=== PATIENT | male | born 1960 | race Two or more races ===

== ENCOUNTER → 2023-01-04 | Emergency (ER) | payer OTHER ==
[~2023-01-04] VITALS: Ht 167.6 cm; Wt 117.9 kg
[~2023-01-04] MED LIST: CANDESARTAN CIL16 MG PO; CARVEDILOL ER40 MG PO; NORVASC5 MG PO; SINGULAIR10 MG PO
[2023-01-04 13:26] LABS: HEMOGLOBIN 15.4 g/dL (13-16.00); MEAN CELL VOLUME 95.6 fL (80.0-100.00); MEAN CORPUSCULAR HEMOGLOBIN 33.5 pg (27.00-32.0); MEAN CORPUSCULAR HGB CONC 35.1 g/dl (32.0-36.0); PLATELET COUNT 205 K/uL (150-450); RED BLOOD COUNT 4.61 M/uL (4.00-6.00); RED CELL DISTRIBUTION WIDTH 12.8 % (11.5-14.5)
[2023-01-04 13:58] LABS: CALCIUM 10.2 mg/dL (8.5-10.1); CREATININE SERUM 0.8 mg/dL (0.70-1.30); GFR 97.63; POTASSIUM 3.9 mEq/L (3.5-5.1)
== END | disposition home or self-care (01) ==
LOC: ER 10:27
PROVIDERS: General Practice
DX: K62.5 Hemorrhage of anus and rectum (principal); I10 Essential (primary) hypertension; K58.8 Other irritable bowel syndrome; K57.90 Diverticulosis of intestine, part unspecified, without perforation or abscess without bleeding

== ENCOUNTER 2024-04-05 11:58 | Outpatient (CLI) | payer OTHER | END 2024-04-05 12:14 | disposition home or self-care (01) | LOC: MRI 11:58 | PROVIDERS: ATTEND Internal Medicine Gastroenterology | DX: R10.9 Unspecified abdominal pain (principal) | CPT/HCPCS: 74182 ==

== ENCOUNTER 2024-04-10 13:39 | Inpatient (IN) | payer OTHER ==
[~2024-04-10] VITALS: Ht 165.1 cm; Wt 112.9 kg
[2024-04-10] MEDS ORDERED: TOPROL XL100 M1 PO (13:46)
[2024-04-10] MEDS ORDERED: TOPROL XL50 M1 PO (13:46)
--- NOTE | 2024-04-10 13:55 | NUR ---
PACIENTE ALERTA Y ORIENTADO X3 REFIERE TENER ORDEN MEDICA POR DR. SHAN FRANKLIN, PARA SER ADMITIDO POR COLELITIASIS. PTE REFIERE DOLOR ABDOMINAL. NIEGA ALGUN TIPO DE [place]GR[place]. SE MIDE S/V Y SE UBICA.
[2024-04-10] MEDS ORDERED: PIPERACILLIN/TAZOBACTAM SODIUM 3.375 GM VIAL IV ONE ×2 (14:28→14:30)
[2024-04-10 15:19] LABS: HEMATOCRIT 38.3 % (39.0-48.0); MEAN CELL VOLUME 96.9 fL (80.0-100.00); MEAN CORPUSCULAR HGB CONC 34.1 g/dl (32.0-36.0); PLATELET COUNT 357 K/uL (150-450); RED BLOOD COUNT 3.96 M/uL (4.00-6.00); RED CELL DISTRIBUTION WIDTH 12.6 % (11.5-14.5)
[2024-04-10 15:24] LABS: ERYTHROCYTE SEDIMENTATION RATE 76 mm/hr
[2024-04-10 15:36] LABS: D DIMER 1.99 MG/L; INR 1.28; PARTIAL THROMBOPLASTIN TIME 37.9 SECONDS (22.0-34.0); PROTHROMBIN TIME 13.7 SECONDS (9.0-11.5)
[2024-04-10 15:41] LABS: ALBUMIN 2.6 gm/dL (3.4-5.0); BILIRUBIN TOTAL 1.18 mg/dL (0.3-1.2); CALCIUM 10.2 mg/dL (8.5-10.1); CREATININE SERUM 1.02 mg/dL (0.70-1.30); GFR 73.53; POTASSIUM 4.08 mEq/L (3.5-5.1); TOTAL PROTEIN 7.6 gm/dL (6.4-8.2)
[2024-04-10 15:50] LABS: PH,URINE 5.5 (5.0-8.0); URINE APPEARANCE Clear; URINE BILIRRUBIN Negative (NEGATIVE); URINE BLOOD Negative; URINE COLOR Dark Yellow; URINE GLUCOSE Negative (NEGATIVE); URINE KETONE Trace (NEGATIVE); URINE LEUKOCYTE Trace; URINE NITRATE Negative; URINE PROTEIN Trace (NEGATIVE)
[2024-04-10 15:54] LABS: URINE BACTERIA 28.1 uL (0.0-1933); URINE EPITHELIAL CELLS 3.3 uL (0.0-38.8); URINE RBC 12.5 uL (0.0-20.8); URINE WBC 3.7 uL (0.0-23.2)
[2024-04-10 15:59] LABS: C-REACTIVE PROTEIN 15.2 MG/DL (0.00-0.29)
[2024-04-10 16:00] LABS: URINE CAST 0.14 uL (0.0-1.40)
[2024-04-10] MEDS ORDERED: APIXABAN 5 MG TABLET PO SCH (17:44)
[2024-04-10] MEDS ORDERED: METOPROLOL TARTRATE 50 MG TABLET PO SCH (17:45)
[2024-04-10] MEDS ORDERED: METOPROLOL TARTRATE 100 MG TABLET PO SCH (17:45)
[2024-04-10] MEDS ORDERED: SODIUM CHLORIDE 0.45 % 1,000 ML IV SCH (18:00)
[2024-04-10 21:00] VITALS: BP 130/75; O2SAT 100
[2024-04-10 23:23] VITALS: BP 95/60; O2SAT 95
[2024-04-11 02:30] VITALS: BP 121/58
[2024-04-11 06:28] LABS: ALBUMIN 2.3 gm/dL (3.4-5.0); BILIRUBIN TOTAL 1.11 mg/dL (0.3-1.2); BILIRUBIN,CONJUGATED 0.53 mg/dL (0.0-0.2); BILIRUBIN,UNCONJUGATED 0.58 mg/dL (0.0-0.6); MAGNESIUM 1.9 mg/dL (1.8-2.4); PHOSPHOROUS 3.3 mg/dL (2.5-4.9); PROSTATIC SPECIFIC ANTIGEN 1.76 NG/ML (0.010-4.00); TOTAL PROTEIN 5.9 gm/dL (6.4-8.2)
[2024-04-11] MEDS ORDERED: CANDESARTAN CILEXETIL 32 MG TABLET PO SCH (09:00)
[2024-04-11] MEDS ORDERED: AMLODIPINE BESYLATE 5 MG TABLET PO SCH (09:00)
[2024-04-11] MEDS ORDERED: HYDROCHLOROTHIAZIDE 12.5 MG CAPSULE PO SCH (09:00)
[2024-04-11] MEDS ORDERED: METOPROLOL TARTRATE 100 MG TABLET PO SCH (09:00)
[2024-04-11 09:10] VITALS: BP 113/69; O2SAT 99
[2024-04-11] MEDS ORDERED: PIPERACILLIN/TAZOBACTAM SODIUM 3.375 GM in DEXTROSE 5 % IN WATER 100 ML IV SCH (10:00)
[2024-04-11 10:13] LABS: T4 FREE 1.6 NG/ML (0.76-1.46)
[2024-04-11] MEDS ORDERED: VITAMIN B COMPLEX/LYSINE 15 ML BLIST.PACK PO SCH (17:00)
[2024-04-11] MEDS ORDERED: METOPROLOL TARTRATE 50 MG TABLET PO SCH (17:00)
[2024-04-11 18:25] VITALS: BP 120/73; O2SAT 97
[2024-04-12 01:13] VITALS: BP 140/77
[2024-04-12 06:46] LABS: ALBUMIN 2.4 gm/dL (3.4-5.0); BILIRUBIN TOTAL 0.81 mg/dL (0.3-1.2); CALCIUM 9.5 mg/dL (8.5-10.1); CREATININE SERUM 0.86 mg/dL (0.70-1.30); GFR 89.53; GLOBULINA 3.7 G/DL (2.4-3.5); MAGNESIUM 2.2 mg/dL (1.8-2.4); PHOSPHOROUS 3.6 mg/dL (2.5-4.9); POTASSIUM 5.18 mEq/L (3.5-5.1); TOTAL PROTEIN 6.1 gm/dL (6.4-8.2)
[2024-04-12 06:47] LABS: HEMATOCRIT 34.2 % (39.0-48.0); HEMOGLOBIN 11.8 g/dL (13-16.00); MEAN CELL VOLUME 97.1 fL (80.0-100.00); MEAN CORPUSCULAR HEMOGLOBIN 33.6 pg (27.00-32.0); MEAN CORPUSCULAR HGB CONC 34.6 g/dl (32.0-36.0); PLATELET COUNT 310 K/uL (150-450); RED BLOOD COUNT 3.52 M/uL (4.00-6.00); RED CELL DISTRIBUTION WIDTH 12.8 % (11.5-14.5)
[2024-04-12 06:54] LABS: C-REACTIVE PROTEIN 11.5 MG/DL (0.00-0.29)
[2024-04-12 08:05] VITALS: BP 137/68
[2024-04-12 18:17] VITALS: BP 120/70; O2SAT 100
[2024-04-13 01:51] VITALS: BP 105/56
[2024-04-13 08:07] VITALS: BP 125/81
[2024-04-13 17:09] VITALS: BP 103/61; O2SAT 97
[2024-04-14 01:28] VITALS: BP 122/72
[2024-04-14 07:47] LABS: ALBUMIN 2.5 gm/dL (3.4-5.0); BILIRUBIN TOTAL 0.53 mg/dL (0.3-1.2); CALCIUM 9.3 mg/dL (8.5-10.1); CREATININE SERUM 0.78 mg/dL (0.70-1.30); GFR 100.21; GLOBULINA 3.7 G/DL (2.4-3.5); POTASSIUM 4.53 mEq/L (3.5-5.1); TOTAL PROTEIN 6.2 gm/dL (6.4-8.2)
[2024-04-14 08:11] LABS: HEMOGLOBIN 12.5 g/dL (13-16.00); MEAN CELL VOLUME 94.8 fL (80.0-100.00); MEAN CORPUSCULAR HEMOGLOBIN 33.8 pg (27.00-32.0); MEAN CORPUSCULAR HGB CONC 35.6 g/dl (32.0-36.0); PLATELET COUNT 374 K/uL (150-450); RED BLOOD COUNT 3.69 M/uL (4.00-6.00); RED CELL DISTRIBUTION WIDTH 12.8 % (11.5-14.5)
[2024-04-14 08:53] VITALS: BP 122/82
[2024-04-14 16:54] VITALS: BP 102/68; O2SAT 98
[2024-04-14] MEDS ORDERED: FAMOtidine 20 MG TABLET PO SCH (18:14)
[2024-04-15 02:42] VITALS: BP 111/70; O2SAT 96
[2024-04-15 09:30] VITALS: BP 147/81
[2024-04-15 17:50] VITALS: BP 149/75; O2SAT 98
[2024-04-16 00:42] VITALS: BP 140/80; O2SAT 97
[2024-04-16 08:45] VITALS: BP 146/93
[2024-04-16 16:29] VITALS: BP 131/78; O2SAT 99
[2024-04-17 01:21] VITALS: BP 119/67
[2024-04-17 09:25] VITALS: BP 126/72; O2SAT 98
[2024-04-17 17:59] VITALS: BP 118/68; O2SAT 99
[2024-04-18 02:01] VITALS: BP 109/73; O2SAT 97
[2024-04-18 05:00] LABS: MEAN CELL VOLUME 96.5 fL (80.0-100.00); MEAN CORPUSCULAR HEMOGLOBIN 32.9 pg (27.00-32.0); MEAN CORPUSCULAR HGB CONC 34.1 g/dl (32.0-36.0); PLATELET COUNT 340 K/uL (150-450); RED BLOOD COUNT 3.73 M/uL (4.00-6.00)
[2024-04-18 05:06] LABS: HEMOGLOBIN 12.3 g/dL (13-16.00)
[2024-04-18 05:43] LABS: ALBUMIN 2.4 gm/dL (3.4-5.0); BILIRUBIN TOTAL 0.4 mg/dL (0.3-1.2); CALCIUM 9.2 mg/dL (8.5-10.1); CREATININE SERUM 0.67 mg/dL (0.70-1.30); GFR 119.42; GLOBULINA 3.5 G/DL (2.4-3.5); POTASSIUM 4.2 mEq/L (3.5-5.1); TOTAL PROTEIN 5.9 gm/dL (6.4-8.2)
[2024-04-18 05:53] LABS: C-REACTIVE PROTEIN 1.54 MG/DL (0.00-0.29)
[2024-04-18 08:00] VITALS: BP 138/84
[2024-04-18 19:23] VITALS: BP 103/49; O2SAT 97
[2024-04-19 04:00] VITALS: BP 155/65
[2024-04-19 08:51] VITALS: BP 15/68
== END 2024-04-19 11:27 | disposition home or self-care (01) | DRG 442 ==
LOC: ER 13:42 → MEDJ 18:18 → SEC-K 18:18 → MEDJ 22:09
PROVIDERS: General Practice; Internal Medicine; Internal Medicine Infectious Disease; ADMIT Specialist; ATTEND Specialist
PROC: BW30YZZ Magnetic Resonance Imaging (MRI) of Abdomen using Other Contrast (ICD-10-PCS; principal; 2024-04-12)
PROC: BW40ZZZ Ultrasonography of Abdomen (ICD-10-PCS; 2024-04-12)
PROC: 02HV33Z Insertion of Infusion Device into Superior Vena Cava, Percutaneous Approach (ICD-10-PCS; 2024-04-16)
PROC: B246ZZZ Ultrasonography of Right and Left Heart (ICD-10-PCS; 2024-04-16)
DX: I81 Portal vein thrombosis (principal); K57.92 Diverticulitis of intestine, part unspecified, without perforation or abscess without bleeding; D72.829 Elevated white blood cell count, unspecified; K76.0 Fatty (change of) liver, not elsewhere classified; R10.13 Epigastric pain; I10 Essential (primary) hypertension